=== PATIENT | male | born 1930 | race Caucasian/White ===

== ENCOUNTER 2018-03-19 17:26 | Inpatient (IN) | payer MEDICARE ==
[2018-03-19] MEDS ORDERED: SODIUM CHLORIDE 0.9% 1,000 ML IV STA ×2 (17:34→18:50)
[2018-03-19 17:53] LABS: Basophils % (A) 0 %; Eosinophils # (A) 0.1 k/uL (0-0.7); Eosinophils % (A) 1 %; HCT 37.8 % (39.0-53.0); HGB 12.9 gm/dL (13.0-17.5); Lymphocytes # (A) 0.6 k/uL (1.0-4.8); Lymphocytes % (A) 6 %; MCH 28.5 pg (25.0-35.0); MCHC 34.2 g/dL (31.0-37.0); MCV 83.4 fL (80.0-100.0); Mean Platelet Volume 6.9; Monocytes # (A) 0.4 k/uL (0-1.0); Monocytes % (A) 4 %; Neutrophils # (A) 8.5 k/uL (1.3-7.7); Neutrophils % (A) 88 %; Platelet Count 157 k/uL (150-450); RBC 4.53 m/uL (4.30-5.90); WBC 9.7 k/uL (3.8-10.6)
--- NOTE | 2018-03-19 17:59 | ED ---
General Adult HPI - General Chief complaint: Weakness Stated complaint: weakness Time Seen by Provider: 03/19/18 17:31 Source: patient, RN notes reviewed, old records reviewed Mode of arrival: EMS Limitations: no limitations - History of Present Illness Initial comments: This is a 87-year-old male the ER for evaluation. Patient is unable to provide history secondary to deteriorating clinical state. Patient does not feel well. Patient was sent in by EMS patient's brought in by EMS, per EMS patient has had multiple falls week unable to get up from floor. Patient was sent in by , patient himself again is unable to provide any history, but denies any current complaints. Per per patient is altered mental status and not acting appropriately - Related Data Home Medications Medication Instructions Recorded Confirmed Donepezil [Aricept] 10 mg PO DIRECTED 03/19/18 03/19/18 Ezetimibe [Zetia] 10 mg PO DIRECTED 03/19/18 03/19/18 Furosemide [Lasix] 20 mg PO DIRECTED 03/19/18 03/19/18 Lisinopril [Zestril] 10 mg PO DIRECTED 03/19/18 03/19/18 Metoprolol Tartrate [Lopressor] 25 mg PO DIRECTED 03/19/18 03/19/18 Potassium Chloride [K-Tab ER] 10 meq PO DIRECTED 03/19/18 03/19/18 Tamsulosin HCl [Flomax] 0.4 mg PO DIRECTED 03/19/18 03/19/18 Allergies Allergy/AdvReac Type Severity Reaction Status Date / Time atropine [From Lomotil] Allergy Rash/Hives Verified 03/19/18 17:35 cefaclor [From Ceclor] Allergy Unknown Verified 03/19/18 17:35 diphenoxylate [From Lomotil] Allergy Rash/Hives Verified 03/19/18 17:35 pentazocine lactate Allergy Unknown Verified 03/19/18 17:35 [From Talwin] Nijferp-Nob-Sbb Reductase Allergy Unknown Verified 03/19/18 17:35 Inhibitor Review of Systems ROS Statement: Those systems with pertinent positive or pertinent negative responses have been documented in the HPI. ROS Other: All systems not noted in ROS Statement are negative. Past Medical History Past Medical History: Heart Failure, Dementia, Hyperlipidemia, Hypertension Additional Past Medical History / Comment(s): Begining signs of dementia; sometimes forgetful History of Any Multi-Drug Resistant Organisms: None Reported Past Surgical History: Cholecystectomy, Hernia Repair, Orthopedic Surgery Additional Past Surgical History / Comment(s): Nerve block in back Past Anesthesia/Blood Transfusion Reactions: No Reported Reaction Past Psychological History: No Psychological Hx Reported Smoking Status: Former smoker Past Alcohol Use History: None Reported Past Drug Use History: None Reported General Exam Limitations: altered mental status, physical limitation General appearance: alert, lethargic Head exam: Present: atraumatic, normocephalic, normal inspection Eye exam: Present: normal appearance, PERRL, EOMI. Absent: scleral icterus, conjunctival injection, periorbital swelling ENT exam: Present: normal exam, mucous membranes dry Neck exam: Present: normal inspection. Absent: tenderness, meningismus, lymphadenopathy Respiratory exam: Present: normal lung sounds bilaterally. Absent: respiratory distress, wheezes, rales, rhonchi, stridor Cardiovascular Exam: Present: regular rate, normal rhythm, normal heart sounds. Absent: systolic murmur, diastolic murmur, rubs, gallop, clicks GI/Abdominal exam: Present: soft, normal bowel sounds. Absent: distended, tenderness, guarding, rebound, rigid Extremities exam: Present: normal inspection, full ROM, normal capillary refill. Absent: tenderness, pedal edema, joint swelling, calf tenderness Back exam: Present: normal inspection Neurological exam: Present: alert, oriented X3, CN II-XII intact Psychiatric exam: Present: normal affect, normal mood Skin exam: Present: warm, dry, intact, normal color. Absent: rash Course Vital Signs 03/19/18 17:28 Temperature 97.9 F Pulse Rate 78 Respiratory 16 Rate Blood Pressure 184/89 O2 Sat by Pulse 98 Oximetry - Reevaluation(s) Reevaluation #1: 03/19/18 18:52 Patient is unable to provide accurate history history obtained from patient's chart medical records thoroughly reviewed EKG Findings - EKG Comments: EKG Findings:: EKG shows sinus rhythm rate of 79, KS 322, QRS 90, QTc 458 Medical Decision Making - Medical Decision Making 87 male the ER with change in mental state, weakness and multiple falls. Patient unable to test secondary to unable to follow complete commands neurologically, patient will be admitted for continued evaluation management, treatment and likely placement - Lab Data Result diagrams: 03/19/18 17:44 03/19/18 17:44 Lab Results 03/19/18 03/19/18 03/19/18 Range/Units 17:44 17:44 17:44 WBC 9.7 (3.8-10.6) k/uL RBC 4.53 (4.30-5.90) m/uL Hgb 12.9 L (13.0-17.5) gm/dL Hct 37.8 L (39.0-53.0) % MCV 83.4 (80.0-100.0) fL MCH 28.5 (25.0-35.0) pg MCHC 34.2 (31.0-37.0) g/dL RDW 14.0 (11.5-15.5) % Plt Count 157 (150-450) k/uL Neutrophils % 88 % Lymphocytes % 6 % Monocytes % 4 % Eosinophils % 1 % Basophils % 0 % Neutrophils # 8.5 H (1.3-7.7) k/uL Lymphocytes # 0.6 L (1.0-4.8) k/uL Monocytes # 0.4 (0-1.0) k/uL Eosinophils # 0.1 (0-0.7) k/uL Basophils # 0.0 (0-0.2) k/uL PT (9.0-12.0) sec INR (<1.2) APTT (22.0-30.0) sec Sodium 141 (137-145) mmol/L Potassium 3.8 (3.5-5.1) mmol/L Chloride 105 (98-107) mmol/L Carbon Dioxide 30 (22-30) mmol/L Anion Gap 6 mmol/L BUN 17 (9-20) mg/dL Creatinine 0.60 L (0.66-1.25) mg/dL Est GFR (CKD-EPI)AfAm >90 (>60 ml/min/1.73 sqM) Est GFR (CKD-EPI)NonAf >90 (>60 ml/min/1.73 sqM) Glucose 91 (74-99) mg/dL Calcium 8.8 (8.4-10.2) mg/dL Total Bilirubin 1.6 H (0.2-1.3) mg/dL AST 33 (17-59) U/L ALT 33 (21-72) U/L Alkaline Phosphatase 45 (38-126) U/L Total Creatine Kinase 189 H (55-170) U/L CK-MB (CK-2) 3.7 H* (0.0-2.4) ng/mL CK-MB (CK-2) Rel Index 2.0 Troponin I <0.012 (0.000-0.034) ng/mL Total Protein 6.5 (6.3-8.2) g/dL Albumin 4.1 (3.5-5.0) g/dL 03/19/18 Range/Units 17:44 WBC (3.8-10.6) k/uL RBC (4.30-5.90) m/uL Hgb (13.0-17.5) gm/dL Hct (39.0-53.0) % MCV (80.0-100.0) fL MCH (25.0-35.0) pg MCHC (31.0-37.0) g/dL RDW (11.5-15.5) % Plt Count (150-450) k/uL Neutrophils % % Lymphocytes % % Monocytes % % Eosinophils % % Basophils % % Neutrophils # (1.3-7.7) k/uL Lymphocytes # (1.0-4.8) k/uL Monocytes # (0-1.0) k/uL Eosinophils # (0-0.7) k/uL Basophils # (0-0.2) k/uL PT 11.1 (9.0-12.0) sec INR 1.2 H (<1.2) APTT 29.5 (22.0-30.0) sec Sodium (137-145) mmol/L Potassium (3.5-5.1) mmol/L Chloride (98-107) mmol/L Carbon Dioxide (22-30) mmol/L Anion Gap mmol/L BUN (9-20) mg/dL Creatinine (0.66-1.25) mg/dL Est GFR (CKD-EPI)AfAm (>60 ml/min/1.73 sqM) Est GFR (CKD-EPI)NonAf (>60 ml/min/1.73 sqM) Glucose (74-99) mg/dL Calcium (8.4-10.2) mg/dL Total Bilirubin (0.2-1.3) mg/dL AST (17-59) U/L ALT (21-72) U/L Alkaline Phosphatase (38-126) U/L Total Creatine Kinase (55-170) U/L CK-MB (CK-2) (0.0-2.4) ng/mL CK-MB (CK-2) Rel Index Troponin I (0.000-0.034) ng/mL Total Protein (6.3-8.2) g/dL Albumin (3.5-5.0) g/dL - Radiology Data Radiology results: report reviewed (CT brain negative for acute disease), image reviewed Disposition Clinical Impression: Transient cerebral ischemia, Confusion, Recurrent falls, Dehydration Disposition: ADMITTED IP TO THIS HOSP Condition: Fair Is patient prescribed a controlled substance at d/c from ED?: No Referrals: Maite Tirado MD [Primary Care Provider] - 1-2 days
[2018-03-19 18:02] LABS: INR 1.2 (<1.2); Partial Thromboplastin Time 29.5 sec (22.0-30.0); Prothrombin Time 11.1 sec (9.0-12.0)
[2018-03-19 18:04] LABS: ALT 33 U/L (21-72); AST 33 U/L (17-59); Albumin 4.1 g/dL (3.5-5.0); Alkaline Phosphatase 45 U/L (38-126); Anion Gap 6 mmol/L; Blood Urea Nitrogen 17 mg/dL (9-20); Calcium 8.8 mg/dL (8.4-10.2); Carbon Dioxide 30 mmol/L (22-30); Chloride 105 mmol/L (98-107); Glucose 91 mg/dL (74-99); Sodium 141 mmol/L (137-145); Total Bilirubin 1.6 mg/dL (0.2-1.3); Total Protein 6.5 g/dL (6.3-8.2)
[2018-03-19 18:08] LABS: Creatine Kinase 189 U/L (55-170); Potassium 3.8 mmol/L (3.5-5.1)
[2018-03-19 18:20] LABS: Troponin I <0.012 ng/mL (0.000-0.034)
[2018-03-19 18:21] LABS: Creatine Kinase MB 3.7 ng/mL (0.0-2.4)
--- NOTE | 2018-03-19 18:52 | CT ---
EXAMINATION: CT brain wo con for TPA DATE AND TIME: 03/19/2018 6:36 PM ORDERING PROVIDER: Nahum Combs DO CLINICAL INDICATION: Neuro Deficits TECHNIQUE: Standard departmental protocol. COMPARISON: 07/29/2016 DESCRIPTION: The calvarium is intact. There is no intracranial hemorrhage. There is no mass or mass effect. There is no definite new attenuation defect. Diffuse low attenuation bilaterally is noted within the schulte radiata and centrum semiovale, but no definite new attenuatio n defect. Remainder of the intra-axial and extra-axial compartment examination is unremarkable. The paranasal s inuses, middle ear cavities, and mastoid sinus air cells are clear. The orbits are intact. Prominent bilateral cerumen is noted within the external auditory canals. IMPRESSION: NO ACUTE PROCESS.
[2018-03-19 19:00] LABS: Appearance,Urine Clear (Clear); Bacteria,Urine Rare /hpf; Bilirubin,Urine Negative (Negative); Blood,Urine Negative (Negative); Color,Urine Light Yellow; Glucose,Urine (UA) Negative (Negative); Ketones,Urine 1+ (Negative); Leukocyte Esterase,Urine Moderate (Negative); Mucus,Urine Moderate /hpf; Nitrite,Urine Negative (Negative); PH, Urine 7.5 (5.0-8.0); Protein,Urine Negative (Negative); RBC,Urine 4 /hpf (0-5); Specific Gravity,Urine 1.019 (1.001-1.035); Urobilinogen,Urine <2.0 mg/dL (<2.0); WBC,Urine 32 /hpf (0-5)
--- NOTE | 2018-03-19 19:29 | CT ---
EXAMINATION TYPE: CT angio head neck contrast and with 3-D reconstruction). DATE OF EXAM: 03/19/2018 HISTORY: cva COMPARISON: CT brain without contrast, 03/19/2018 at 6:20 PM. 07/29/[address] DLP: 236.9 mGycm. Automated Exposure Control for Dose Reduction was Utilized. TECHNIQUE: CTA scan of the neck is performed with IV Contrast, patient injected with 65 mL of Isovue 370, axial images are obtained, coronal and sagittal reformatted images are reviewed. Three-D recons tructed images are created on an independent workstation and reviewed. NECK CTA FINDINGS: Origins of the great vessels are widely patent. The right and left common, internal, and external carotid arteries are widely patent without hemodyna mically significant stenoses throughout their cervical course. Atherosclerotic intimal calcifications are appreciated. The right and left vertebral arteries are widely patent without hemodynamically significant stenoses throughout their cervical course. Atherosclerotic intimal calcifications are appreciated. No incidental extra-arterial significant findings. HEAD CTA FINDINGS: The anterior circulation and posterior circulation are diffusely patent. There is no aneurysm and no definite hemodynamically-significant stenoses. Atherosclerotic intimal calcificati ons are appreciated. No incidental extra-arterial significant findings. IMPRESSION: NO ACUTE PROCESS.
[2018-03-19] MEDS ORDERED: LEVOFLOXACIN 750MG-D5W PMX 750 MG in DEXTROSE/WATER 1 150ML.BAG IVPB STA (19:39)
[2018-03-19] MEDS ORDERED: LABETALOL 5 MG/ML VIAL MDV IVP STA (19:57)
[2018-03-20] MEDS: hydrALAZINE HCL 20 MG/ML 1 ML VIAL IVP PRN (00:04)
[2018-03-20] MEDS ORDERED: LISINOPRIL 10 MG TAB PO SCH (01:45)
[2018-03-20] MEDS ORDERED: EZETIMIBE 10 MG TAB PO SCH (01:45)
[2018-03-20] MEDS ORDERED: DONEPEZIL 10 MG TAB PO SCH (01:45)
[2018-03-20 02:29] LABS: Glucose,Whole Blood 126 mg/dL (75-99)
[2018-03-20] MEDS ORDERED: ENALAPRILAT 1.25 MG/ML 1 ML VIAL IVP STA (02:48)
--- NOTE | 2018-03-20 03:09 | XR ---
EXAMINATION TYPE: XR abdomen acute w cxr DATE OF EXAM: 03/20/2018 COMPARISON: 07/03/2015 and 07/28/2016 HISTORY: Abdominal pain possible aspiration TECHNIQUE: Chest x-ray and supine and upright abdomen FINDINGS: There is coarse pulmonary interstitial infiltrate. Heart size is normal. There is no definite pleural effusion. There is no sign of intestinal obstruction or pneumoperitoneum. Fecal pattern is normal. T here is neurostimulator in the mid thoracic spine. IMPRESSION: New pulmonary interstitial infiltrates and edema compared to old exam. This could relate to acute hea rt failure. Nonacute abdomen.
[2018-03-20] MEDS ORDERED: FUROSEMIDE 10 MG/ML 2 ML VIAL IV STA (03:19)
[2018-03-20] MEDS ORDERED: HYDROcodone/APAP 5-325MG 1 EACH TAB PO PRN (03:19)
[2018-03-20] MEDS: ONDANSETRON 4 MG/2 ML VIAL IVP PRN ×2 (04:08→22:21)
[2018-03-20 07:13] LABS: Basophils % (A) 0 %; Eosinophils % (A) 0 %; HCT 42.9 % (39.0-53.0); HGB 14.4 gm/dL (13.0-17.5); Lymphocytes # (A) 0.3 k/uL (1.0-4.8); Lymphocytes % (A) 3 %; MCH 28.6 pg (25.0-35.0); MCHC 33.5 g/dL (31.0-37.0); MCV 85.2 fL (80.0-100.0); Mean Platelet Volume 6.3; Monocytes # (A) 0.3 k/uL (0-1.0); Monocytes % (A) 3 %; Neutrophils # (A) 9.9 k/uL (1.3-7.7); Neutrophils % (A) 93 %; Platelet Count 174 k/uL (150-450); RBC 5.04 m/uL (4.30-5.90); RDW 14.4 % (11.5-15.5); WBC 10.6 k/uL (3.8-10.6)
[2018-03-20 07:20] LABS: Anion Gap 8 mmol/L; Blood Urea Nitrogen 11 mg/dL (9-20); Calcium 8.7 mg/dL (8.4-10.2); Carbon Dioxide 30 mmol/L (22-30); Chloride 102 mmol/L (98-107); Glucose 126 mg/dL (74-99); Magnesium 1.8 mg/dL (1.6-2.3); Potassium 3.8 mmol/L (3.5-5.1); Sodium 140 mmol/L (137-145)
[2018-03-20] MEDS: ENOXAPARIN 40 MG/0.4 ML SYRINGE SQ SCH (07:52)
[2018-03-20] MEDS: TAMSULOSIN 0.4 MG CAP.ER.24H PO SCH (07:52)
[2018-03-20] MEDS: POTASSIUM CHLORIDE ER 20 MEQ TAB.ER PO SCH (07:53)
[2018-03-20] MEDS: LISINOPRIL 10 MG TAB PO SCH (07:53)
[2018-03-20] MEDS: FAMOTIDINE 20 MG TAB PO SCH (07:56)
[2018-03-20] MEDS: DONEPEZIL 10 MG TAB PO SCH (07:57)
[2018-03-20] MEDS: METOPROLOL TARTRATE 25 MG TAB PO SCH ×2 (07:57→22:23)
[2018-03-20] MEDS: EZETIMIBE 10 MG TAB PO SCH (07:57)
[2018-03-20] MEDS: FUROSEMIDE 20 MG TAB PO SCH (10:27)
--- NOTE | 2018-03-20 11:05 | ECHOF ---
Referral Reason:CVA MEASUREMENTS -------- HEIGHT: 162.6 cm WEIGHT: 52.2 kg BP: 140/82 RVIDd: 3.7 cm (< 3.3) IVSd: 1.2 cm (0.6 - 1.1) LVIDd: 3.8 cm (3.9 - 5.3) LVPWd: 1.8 cm (0.6 - 1.1) IVSs: 1.6 cm LVIDs: 3.4 cm LVPWs: 1.5 cm LA Diam: 3.2 cm (2.7 - 3.8) LAESV Index (A-L): 53.30 ml/m Ao Diam: 3.4 cm (2.0 - 3.7) AV Cusp: 0.9 cm (1.5 - 2.6) MV EXCURSION: 22.560 mm (> 18.000) MV EF SLOPE: 114 mm/s (70 - 150) EPSS: 1.7 cm MV E Ghassan: 0.66 m/s MV DecT: 256 ms MV A Ghassan: 0.72 m/s MV E/A Ratio: 0.91 AV maxP.51 mmHg AV meanP.66 mmHg RAP: 5.00 mmHg RVSP: 25.41 mmHg FINDINGS -------- Sinus rhythm. This was a technically adequate study. The left ventricular size is normal. There is mild concentric left ventricular hypertrophy. Overa ll left ventricular systolic function is low-normal with, an EF between 50 - 55 %. The right ventricle is mild to moderately enlarged. The left atrial size is normal. LA is severely dilated >40 ml/m2 The right atrial size is normal. Peak/mean gradient across the Aortic Valve is 21.51mmHg / 8.66mmHg. Aov is stenotic with decrease o pening. Mild mitral annular calcification present. Uvfo-mb-tbrbhvnt mitral regurgitation is present. Mild tricuspid regurgitation present. There is no evidence of pulmonary hypertension. The right v entricular systolic pressure, as measured by Doppler, is 25.41mmHg. Trace/mild (physiologic) pulmonic regurgitation. The aortic root size is normal. There is no pericardial effusion. CONCLUSIONS -------- 1. The left ventricular size is normal. 2. There is mild concentric left ventricular hypertrophy. 3. Overall left ventricular systolic function is low-normal with, an EF between 50 - 55 %. 4. The right ventricle is mild to moderately enlarged. 5. The left atrial size is normal. 6. LA is severely dilated >40 ml/m2 7. The right atrial size is normal. 8. Peak/mean gradient across the Aortic Valve is 21.51mmHg / 8.66mmHg. 9. Aov is stenotic with decrease opening. 10. Mild mitral annular calcification present. 11. Byhu-xk-tnabvtir mitral regurgitation is present. 12. Mild tricuspid regurgitation present. 13. There is no evidence of pulmonary hypertension. 14. The right ventricular systolic pressure, as measured by Doppler, is 25.41mmHg. 15. Trace/mild (physiologic) pulmonic regurgitation. 16. The aortic root size is normal. 17. There is no pericardial effusion. SHIPPING AND RECEIVING OPERATOR: Vale Mora RDCS
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
[2018-03-20 13:22] VITALS: BMI 16.0
--- NOTE | 2018-03-20 14:26 | FL ---
MODIFIED SWALLOW / DEGLUTITION STUDY EXAMINATION TYPE: FL barium swallow w video DATE OF EXAM: 03/20/2018 CLINICAL HISTORY: 87-year-old male with trouble swallowing, choking and gurgling at the bedside. TECHNIQUE: Deglutition study is performed utilizing thin liquid barium, honey and nectar thick liqui d barium, barium thick applesauce, and barium coated cracker. Total fluoroscopy time: 3 minutes 5 seconds. Total images: None. Real-time fluoroscopy support was provided to speech pathology. COMPARISON: None. FINDINGS: There is dysmotility along the posterior pharyngeal wall resulting in residual here. There is deep pe netration with thin liquids. There is penetration to the level of the false cords with puree consiste ncy with eventual deep penetration to the true cords. There is severe vallecular residuals with solid consistencies and moderate with puree consistency. No irina aspiration seen though this does place the patient at risk for aspiration. IMPRESSION: Deep penetration with both thin liquids and pureed consistency. There are also moderate to severe gene lecular residuals depending on pureed or solid consistencies. While aspiration was not seen, this sammie roslyn the patient at risk for aspiration. Please refer to speech therapist notes for further details if necessary.
[2018-03-20] MEDS: HYDROcodone/APAP 7.5-325MG 1 EACH TAB PO PRN ×2 (15:25→22:19)
--- NOTE | 2018-03-20 16:33 | XR ---
EXAMINATION TYPE: XR sacrum coccyx DATE OF EXAM: 03/20/2018 COMPARISON: None HISTORY: Fall, pain TECHNIQUE: 3 views sacrum and coccyx FINDINGS: Sacroiliac joints have some degenerative change. No sacral or coccygeal abnormality is evid ent. IMPRESSION: 1. Normal sacrum and coccyx
--- NOTE | 2018-03-20 16:33 | XR ---
EXAMINATION TYPE: XR lumbosacral spine min 4V DATE OF EXAM: 03/20/2018 COMPARISON: None HISTORY: Fall on cement, pain TECHNIQUE: Five-view lumbar spine FINDINGS: Electronic device is in the abdomen. Pedicle screws are present L4-5. There 5 lumbar-type vertebral bodies. L1-L3 pedicles are intact. Laminectomies been performed L4-5 L5 -S1. Loss of disc height is present L4-5. Vascular calcifications within the aorta. There is loss of disc height posteriorly at L1-L2. IMPRESSION: 1. Postsurgical and degenerative changes within the lumbar spine discussed above. 2. No acute osseous abnormality
--- NOTE | 2018-03-20 19:40 | CONS ---
CONSULTATION DATE OF CONSULTATION: 03/20/2018. CHIEF COMPLAINT: Altered mental status. HISTORY OF PRESENT ILLNESS: Mr. Maloney is a pleasant 87-year-old, male, who is being evaluated by the neurology service per the request of Dr. Long for altered mental status. The patient was brought into [facility] Emergency Room after his noticed that he was not acting like his usual self. The patient has been having some frequent falls as well at home. There was concern for a possible stroke and the patient was brought into the emergency room for further workup. A CT scan of the brain was done, which was normal. A CT angiogram of the brain and neck were also done both of which showed no significant abnormalities. His CBC and cardiac enzymes were normal. His INR was 1.2. His comprehensive metabolic profile was normal except for slightly elevated bilirubin at 1.6. His urinalysis showed 32 WBCs with moderate leukocyte esterase. The patient was started on Levaquin and admitted for further management. At the time of my evaluation, he is lying in his bed and appears to be in no acute distress. He was complaining of some low back pain which he does have a chronic history of, and just received oral [place] tablet which has improved his symptoms. The patient does have a history of Alzheimer's dementia and is on Aricept 10 mg daily at home. He denies any lateralizing numbness or weakness. In the emergency room, his blood pressure was elevated at 197/92. His blood pressure has improved to 140/82 at the time of my evaluation. PAST MEDICAL HISTORY: Alzheimer's dementia, chronic low back pain, arthritis, heart failure, dyslipidemia, hypertension, benign prostatic hypertrophy, history of cholecystectomy, hernia repair, orthopedic surgeries. SOCIAL HISTORY: The patient is a former smoker. There is no history of any alcohol or drug use. FAMILY HISTORY: Positive for cancer. HOME MEDICATIONS: Reviewed in the chart. ALLERGIES: LOMOTIL, CECLOR, TALWIN, STATIN DRUGS. REVIEW OF SYSTEMS: CONSTITUTIONAL: Positive for fatigue. EYES: Positive for chronic diminished vision. ENT: Negative. CARDIOVASCULAR: Negative. RESPIRATORY: Negative. NEUROLOGICAL: As mentioned above. GASTROINTESTINAL: Positive for occasional heartburn. GENITOURINARY: Positive for benign prostatic hypertrophy. PSYCHIATRIC: Negative. ENDOCRINE: Negative. MUSCULOSKELETAL: As mentioned above. DERMATOLOGICAL: Negative. PHYSICAL EXAM: VITAL SIGNS: Temperature of 96.6, pulse 88, respirations 16, blood pressure 140/82. GENERAL APPEARANCE: The patient is a thin elderly male, who appears to be in no acute distress. HEENT: Normocephalic, atraumatic. No facial asymmetry is seen. NECK: Supple with no masses felt. CARDIOVASCULAR: Regular rate and rhythm. ABDOMEN: Nontender nondistended. EXTREMITIES: No edema or clubbing. NEUROLOGICAL: The patient is awake and oriented to person and place. He could not recall the year. He follows commands appropriately. No lateralizing weakness is seen. No pronator drift is noticed. Sensory exam was normal to light touch in all 4 extremities. No facial asymmetry is seen on cranial nerve testing. No significant tremors are noticed. IMPRESSION: 1. Altered mental status. 2. Acute on top of chronic encephalopathy, likely infectious and hypertensive. 3. History of Alzheimer's dementia. 4. Acute urinary tract infection. 5. Elevated bilirubin levels. RECOMMENDATION: The patient's altered mental status is likely due to hypertensive and infectious encephalopathy. His blood pressure was quite elevated on arrival but has normalized after his admission. He was also found to have an acute urinary tract infection. He has been started on Levaquin for this. An EEG has been ordered. His CT scan of the brain along with a CT angiogram of the brain and neck were reviewed and all of which showed no significant abnormalities. I doubt any ischemic events at this time. Continue neuro checks. I do recommend a physical therapy evaluation given his gait instability. I also recommend further workup regarding his elevated bilirubin level. Continue the rest of your current workup and management. I will continue to follow with you. Further recommendations to follow. Thank you for allowing me to participate in the care of your patient. If you have any questions, please feel free to contact me. MMODL / IJN: [id number] /
[2018-03-20] MEDS: LEVOFLOXACIN 750MG-D5W PMX 750 MG in DEXTROSE/WATER 1 150ML.BAG IVPB SCH (20:33)
[2018-03-21] MEDS: HYDROcodone/APAP 7.5-325MG 1 EACH TAB PO PRN (05:59)
[2018-03-21 07:21] LABS: Basophils % (A) 0 %; Eosinophils % (A) 0 %; HCT 38.9 % (39.0-53.0); HGB 13.1 gm/dL (13.0-17.5); Lymphocytes # (A) 0.4 k/uL (1.0-4.8); Lymphocytes % (A) 4 %; MCH 29.1 pg (25.0-35.0); MCHC 33.8 g/dL (31.0-37.0); MCV 86.3 fL (80.0-100.0); Mean Platelet Volume 6.8; Monocytes # (A) 0.3 k/uL (0-1.0); Monocytes % (A) 3 %; Neutrophils # (A) 9.7 k/uL (1.3-7.7); Neutrophils % (A) 92 %; Platelet Count 154 k/uL (150-450); RBC 4.51 m/uL (4.30-5.90); RDW 14.2 % (11.5-15.5); WBC 10.5 k/uL (3.8-10.6)
[2018-03-21 07:45] LABS: ALT 29 U/L (21-72); AST 22 U/L (17-59); Albumin 3.3 g/dL (3.5-5.0); Alkaline Phosphatase 46 U/L (38-126); Anion Gap 6 mmol/L; Blood Urea Nitrogen 17 mg/dL (9-20); Calcium 8.6 mg/dL (8.4-10.2); Carbon Dioxide 31 mmol/L (22-30); Chloride 104 mmol/L (98-107); Glucose 103 mg/dL (74-99); Sodium 141 mmol/L (137-145); Total Bilirubin 1.3 mg/dL (0.2-1.3); Total Protein 5.6 g/dL (6.3-8.2)
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
--- NOTE | 2018-03-21 16:12 | P.PN ---
Subjective Progress Note Date: 03/21/18 Patient is an 87-year-old male who is being followed by the neurology service for altered mental status. Patient was brought to [facility] after his noticed he was not acting his usual self. Patient has been having frequent falls at home. There is concern for possible stroke and patient was brought to the emergency room for further evaluation. Computed tomography scan of the brain was done which was normal. CT angiogram of the brain and neck were also done which showed no significant abnormalities. Patient did have urinalysis which showed signs of urinary tract infection and patient was placed on Levaquin. Patient does have history of Alzheimer's dementia and is on Aricept in the home setting. No lateralizing weakness was noted on admission. Patient did come in with elevated blood pressure which is now down in acceptable range. Patient does have history of chronic back pain and received increased dose of hydrocodone this morning, and patient has been extremely lethargic since. At the time of my evaluation, patient is arousable but extremely lethargic. He does not appear to be in any acute distress. Objective - Vital Signs Vital signs: Vital Signs Temp 97.5 F L 03/21/18 15:48 Pulse 75 03/21/18 15:48 Resp 16 03/21/18 15:48 BP 138/77 03/21/18 15:48 Pulse Ox 94 L 03/21/18 15:48 Intake & Output 03/20/18 03/21/18 03/21/18 18:59 06:59 18:59 Intake Total 810 890 0 Balance 810 890 0 Weight 52.163 kg 52.163 kg Intake: Intake, IV Titration 500 150 Amount Levofloxacin 750Mg-D5w 150 Pmx 750 mg In Dextrose/ Water 1 150ml.bag @ 100 mls/hr IVPB Q24H MARIANNE Rx#: [id number] Sodium Chloride 0.9% 1, 500 000 ml @ 100 mls/hr IV . Q10H STA Rx#:[id number] Oral 310 740 0 Other: Voiding Method Diaper Diaper Diaper Incontinent Incontinent Incontinent # Voids 2 4 - Exam PHYSICAL EXAM: GENERAL APPEARANCE: Patient is a well-developed, male who appears to be in no acute distress. HEENT: Normocephalic, atraumatic, no facial asymmetry is seen. Neck is supple with no masses felt. CARDIOVASCULAR: Regular rate and rhythm. ABDOMEN: Nontender, nondistended. EXTREMITIES: Show no edema or clubbing. NEUROLOGICAL EXAM: Patient awakens with significant prodding. Patient is very lethargic. Likely due to medication given this morning. He is able to state he is in the hospital. Patient quickly falls back to sleep. He is moving all extremities. No lateralizing weakness noted. No obvious facial asymmetry is noted. A meaningful sensory and strength exam could not be performed due to lethargy. No obvious tremors or seizure-like activity noted. - Labs CBC & Chem 7: 03/21/18 06:38 03/21/18 06:38 Labs: Abnormal Lab Results - Last 24 Hours (Table) 03/21/18 03/21/18 Range/Units 06:38 06:38 Hct 38.9 L (39.0-53.0) % Neutrophils # 9.7 H (1.3-7.7) k/uL Lymphocytes # 0.4 L (1.0-4.8) k/uL Carbon Dioxide 31 H (22-30) mmol/L Glucose 103 H (74-99) mg/dL Total Protein 5.6 L (6.3-8.2) g/dL Albumin 3.3 L (3.5-5.0) g/dL Microbiology - Last 24 Hours (Table) 03/19/18 18:48 Urine Culture - Preliminary Urine,Voided Gram Neg Bacilli Assessment and Plan Plan: Impression: 1. Altered mental status 2. Acute on chronic encephalopathy, likely infectious and hypertensive. 3. History of Alzheimer's dementia 4. Acute urinary tract infection 5. Elevated bilirubin levels Recommendation: Patient's altered mental status is likely due to hypertensive an infectious encephalopathy. It is doubtful this is due to an ischemic event. Patient had elevated blood pressure on admission but is now within acceptable level. Patient is being treated for acute urinary tract infection. EEG was done and results are pending. As you recall, computed tomography scan of the brain along with CT angiogram of the brain and neck were without significant abnormality. Continue neurological checks. Continue physical therapy for gait instability. Continue medical management. As far as patient lethargy, I expect he will become more alert as the hydrocodone wears off. Hydrocodone dosing has been lowered. Barring any abnormality on the EEG, I will follow with you on an as-needed basis. Feel free to call with any questions or concerns. I performed an examination of the patient and discussed the management with the CATHODE RAY TUBE SALVAGE PROCESSOR. I have reviewed the CATHODE RAY TUBE SALVAGE PROCESSOR notes and agree with the findings and plan of care.
[2018-03-21] MEDS: ENOXAPARIN 40 MG/0.4 ML SYRINGE SQ SCH (17:13)
[2018-03-21] MEDS: DONEPEZIL 10 MG TAB PO SCH (17:13)
[2018-03-21] MEDS: TAMSULOSIN 0.4 MG CAP.ER.24H PO SCH (17:13)
[2018-03-21] MEDS: POTASSIUM CHLORIDE ER 20 MEQ TAB.ER PO SCH (17:14)
[2018-03-21] MEDS: FUROSEMIDE 20 MG TAB PO SCH (17:14)
[2018-03-21] MEDS: EZETIMIBE 10 MG TAB PO SCH (17:14)
[2018-03-21] MEDS: LISINOPRIL 10 MG TAB PO SCH (17:14)
[2018-03-21] MEDS: FAMOTIDINE 20 MG TAB PO SCH (17:14)
[2018-03-21] MEDS: METOPROLOL TARTRATE 25 MG TAB PO SCH ×2 (17:14→22:12)
[2018-03-21] MEDS: LEVOFLOXACIN 750MG-D5W PMX 750 MG in DEXTROSE/WATER 1 150ML.BAG IVPB SCH (20:05)
[2018-03-22 07:24] LABS: Basophils % (A) 0 %; Eosinophils % (A) 0 %; HCT 36.9 % (39.0-53.0); HGB 12.1 gm/dL (13.0-17.5); Lymphocytes # (A) 0.5 k/uL (1.0-4.8); Lymphocytes % (A) 6 %; MCH 27.6 pg (25.0-35.0); MCHC 32.8 g/dL (31.0-37.0); MCV 84.1 fL (80.0-100.0); Mean Platelet Volume 8.1; Monocytes # (A) 0.4 k/uL (0-1.0); Monocytes % (A) 5 %; Neutrophils # (A) 7.1 k/uL (1.3-7.7); Neutrophils % (A) 88 %; Platelet Count 163 k/uL (150-450); RBC 4.39 m/uL (4.30-5.90); RDW 13.9 % (11.5-15.5)
[2018-03-22 07:31] LABS: ALT 29 U/L (21-72); AST 14 U/L (17-59); Albumin 2.9 g/dL (3.5-5.0); Alkaline Phosphatase 42 U/L (38-126); Anion Gap 2 mmol/L; Blood Urea Nitrogen 16 mg/dL (9-20); Calcium 8.3 mg/dL (8.4-10.2); Carbon Dioxide 33 mmol/L (22-30); Chloride 106 mmol/L (98-107); Glucose 95 mg/dL (74-99); Potassium 3.7 mmol/L (3.5-5.1); Sodium 141 mmol/L (137-145); Total Bilirubin 1.3 mg/dL (0.2-1.3); Total Protein 5.1 g/dL (6.3-8.2)
[2018-03-22] MEDS: FUROSEMIDE 20 MG TAB PO SCH (08:36)
[2018-03-22] MEDS: ENOXAPARIN 40 MG/0.4 ML SYRINGE SQ SCH (08:36)
[2018-03-22] MEDS: POTASSIUM CHLORIDE ER 20 MEQ TAB.ER PO SCH (08:36)
[2018-03-22] MEDS: FAMOTIDINE 20 MG TAB PO SCH (08:37)
[2018-03-22] MEDS: DONEPEZIL 10 MG TAB PO SCH (08:37)
[2018-03-22] MEDS: EZETIMIBE 10 MG TAB PO SCH (08:37)
[2018-03-22] MEDS: TAMSULOSIN 0.4 MG CAP.ER.24H PO SCH (08:37)
[2018-03-22] MEDS: LISINOPRIL 10 MG TAB PO SCH (08:37)
[2018-03-22] MEDS: METOPROLOL TARTRATE 25 MG TAB PO SCH ×2 (08:37→21:10)
[2018-03-22] MEDS: HYDROcodone/APAP 5-325MG 1 EACH TAB PO PRN (12:13)
--- NOTE | 2018-03-22 12:48 | PN ---
PROGRESS NOTE DATE OF SERVICE: 03/22/2018 He is hemodynamically stable. He feels like he is having some chills today. His appetite is poor. His blood pressure is 161/82, respiratory rate of 16, pulse rate of 74, temperature 98.2. Oxygen saturation on 2 L by nasal cannula is 96%. HEENT is unremarkable. Chest reveals decreased breath sounds. Cardiovascular system is in S1, S2. Abdomen is soft. There is no edema. White count is 8, hemoglobin of 12.1, sodium 141, potassium 3.7, chloride 106, bicarb 33. IMPRESSION AT THIS TIME: 1. Metabolic encephalopathy. 2. Urinary tract infection. 3. Acute on chronic diastolic congestive heart failure. 4. Advanced dementia. 5. Severe protein-calorie malnutrition. 6. Hypertension. 7. Previous cerebrovascular accident. Continue current medications. Increase his activity level. Continue GI and DVT prophylaxis. MMODL / IJN: [id number] /
--- NOTE | 2018-03-22 17:07 | P.PN ---
Subjective Progress Note Date: 03/22/18 Patient is an 87-year-old male who is being followed by the neurology service for altered mental status. Patient was brought to [facility] after his noticed he was not acting his usual self. Patient has been having frequent falls at home. There is concern for possible stroke and patient was brought to the emergency room for further evaluation. Computed tomography scan of the brain was done which was normal. CT angiogram of the brain and neck were also done which showed no significant abnormalities. Patient did have urinalysis which showed signs of urinary tract infection and patient was placed on Levaquin. Patient does have history of Alzheimer's dementia and is on Aricept in the home setting. No lateralizing weakness was noted on admission. Patient did come in with elevated blood pressure which is now down in acceptable range. Patient does have history of chronic back pain and received increased dose of hydrocodone this morning, and patient has been extremely lethargic since. At the time of my evaluation, patient is arousable but extremely lethargic. He does not appear to be in any acute distress. 03/22/2018 Patient is a pleasant 87-year-old male who is being followed by the neurology service for altered mental status. Patient is much more awake and alert today. No lateralizing weakness noted. No obvious facial asymmetry is noted. At the time of my evaluation, patient is resting comfortably in bed and appears to be in no acute distress. Objective - Vital Signs Vital signs: Vital Signs Temp 97.1 F L 03/22/18 15:00 Pulse 69 03/22/18 15:00 Resp 18 03/22/18 15:00 BP 141/78 03/22/18 15:00 Pulse Ox 98 03/22/18 15:00 Intake & Output 03/21/18 03/22/18 03/22/18 18:59 06:59 18:59 Intake Total 0 400 Balance 0 400 Weight 52.163 kg Intake: IV 400 0.9 400 Oral 0 Other: Voiding Method Diaper Diaper Diaper Incontinent Incontinent Incontinent # Voids 4 1 - Exam PHYSICAL EXAM: GENERAL APPEARANCE: Patient is a well-developed, male who appears to be in no acute distress. HEENT: Normocephalic, atraumatic, no facial asymmetry is seen. Neck is supple with no masses felt. CARDIOVASCULAR: Regular rate and rhythm. ABDOMEN: Nontender, nondistended. EXTREMITIES: Show no edema or clubbing. NEUROLOGICAL EXAM: Patient is awake, alert, and oriented 2. Patient states he is in the hospital and can state his name. Patient does not know what year or month it is. No lateralizing weakness noted. No obvious facial asymmetry is noted. Sensory exam to light touch is normal in all 4 extremities. No tremors or seizure-like activity noted. - Labs CBC & Chem 7: 03/22/18 07:07 03/22/18 07:07 Labs: Abnormal Lab Results - Last 24 Hours (Table) 03/22/18 03/22/18 Range/Units 07:07 07:07 Hgb 12.1 L (13.0-17.5) gm/dL Hct 36.9 L (39.0-53.0) % Lymphocytes # 0.5 L (1.0-4.8) k/uL Carbon Dioxide 33 H (22-30) mmol/L Calcium 8.3 L (8.4-10.2) mg/dL AST 14 L (17-59) U/L Total Protein 5.1 L (6.3-8.2) g/dL Albumin 2.9 L (3.5-5.0) g/dL Microbiology - Last 24 Hours (Table) 03/19/18 18:48 Urine Culture - Final Urine,Voided Klebsiella oxytoca Assessment and Plan Plan: Impression: 1. Altered mental status 2. Acute on chronic encephalopathy, likely infectious and hypertensive. 3. History of Alzheimer's dementia 4. Acute urinary tract infection 5. Elevated bilirubin levels Recommendation: Patient's altered mental status is likely due to hypertensive an infectious encephalopathy. There is no evidence of an ischemic event. Patient had elevated blood pressure on admission but is now within acceptable level. Patient is being treated for acute urinary tract infection. EEG was done and results are pending. As you recall, computed tomography scan of the brain along with CT angiogram of the brain and neck were without significant abnormality. Continue neurological checks. Continue physical therapy for gait instability. Continue medical management. Barring any abnormality on the EEG, I will follow with you on an as-needed basis. Feel free to call with any questions or concerns. I performed an examination of the patient and discussed the management with the GRILL COOK. I have reviewed the GRILL COOK notes and agree with the findings and plan of care.
[2018-03-22] MEDS: LEVOFLOXACIN 750MG-D5W PMX 750 MG in DEXTROSE/WATER 1 150ML.BAG IVPB SCH (19:36)
[2018-03-23] MEDS: FAMOTIDINE 20 MG TAB PO SCH (07:58)
[2018-03-23] MEDS: ENOXAPARIN 40 MG/0.4 ML SYRINGE SQ SCH (07:58)
[2018-03-23] MEDS: FUROSEMIDE 20 MG TAB PO SCH (07:58)
[2018-03-23] MEDS: EZETIMIBE 10 MG TAB PO SCH (07:58)
[2018-03-23] MEDS: POTASSIUM CHLORIDE ER 20 MEQ TAB.ER PO SCH (07:58)
[2018-03-23] MEDS: TAMSULOSIN 0.4 MG CAP.ER.24H PO SCH (07:58)
[2018-03-23] MEDS: LISINOPRIL 10 MG TAB PO SCH (07:59)
[2018-03-23] MEDS: DONEPEZIL 10 MG TAB PO SCH (07:59)
[2018-03-23] MEDS: METOPROLOL TARTRATE 25 MG TAB PO SCH ×2 (07:59→21:52)
[2018-03-23 08:19] LABS: Basophils % (A) 0 %; Eosinophils # (A) 0.1 k/uL (0-0.7); Eosinophils % (A) 2 %; HCT 37.3 % (39.0-53.0); HGB 12.5 gm/dL (13.0-17.5); Lymphocytes # (A) 0.7 k/uL (1.0-4.8); Lymphocytes % (A) 9 %; MCH 28.4 pg (25.0-35.0); MCHC 33.4 g/dL (31.0-37.0); MCV 84.8 fL (80.0-100.0); Mean Platelet Volume 6.9; Monocytes # (A) 0.4 k/uL (0-1.0); Monocytes % (A) 5 %; Neutrophils # (A) 5.9 k/uL (1.3-7.7); Neutrophils % (A) 82 %; Platelet Count 171 k/uL (150-450); RDW 13.7 % (11.5-15.5); WBC 7.2 k/uL (3.8-10.6)
[2018-03-23 08:32] LABS: ALT 28 U/L (21-72); AST 17 U/L (17-59); Albumin 2.9 g/dL (3.5-5.0); Alkaline Phosphatase 42 U/L (38-126); Anion Gap 6 mmol/L; Blood Urea Nitrogen 15 mg/dL (9-20); Calcium 8.2 mg/dL (8.4-10.2); Carbon Dioxide 30 mmol/L (22-30); Chloride 106 mmol/L (98-107); Glucose 91 mg/dL (74-99); Potassium 3.5 mmol/L (3.5-5.1); Sodium 142 mmol/L (137-145); Total Bilirubin 1.1 mg/dL (0.2-1.3); Total Protein 5.1 g/dL (6.3-8.2)
--- NOTE | 2018-03-23 16:28 | P.PN ---
Subjective Progress Note Date: 03/23/18 03/23/2018, patient seen eval reexamined during the rounds, no other specific complains of present intermittent moving all 4 extremities, urine is positive for Klebsiella, currently on Levaquin which shows sensitivity Patient is an 87-year-old male admitted for altered mental status. Patient was brought to [facility] after his noticed he was not acting his usual self. Patient has been having frequent falls at home. There is concern for possible stroke and patient was brought to the emergency room for further evaluation. Computed tomography scan of the brain was done which was normal. CT angiogram of the brain and neck were also done which showed no significant abnormalities. Patient did have urinalysis which showed signs of urinary tract infection and patient was placed on Levaquin. Patient does have history of Alzheimer's dementia and is on Aricept in the home setting. No lateralizing weakness was noted on admission. Patient did come in with elevated blood pressure improved acceptable range. Patient does have history of chronic back pain and received increased dose of hydrocodone this morning, and patient has been extremely lethargic since. At the time of my evaluation, patient is arousable but extremely lethargic. He does not appear to be in any acute distress. Objective - Vital Signs Vital signs: Vital Signs Temp 97.9 F 03/23/18 15:00 Pulse 76 03/23/18 15:00 Resp 18 03/23/18 15:00 BP 162/87 03/23/18 15:00 Pulse Ox 96 03/23/18 15:00 Intake & Output 03/22/18 03/23/18 03/23/18 18:59 06:59 18:59 Intake Total 400 120 320 Balance 400 120 320 Intake: IV 400 320 0.9 400 320 Oral 120 Other: Voiding Method Diaper Diaper Diaper Incontinent Incontinent Incontinent # Voids 2 3 - Labs CBC & Chem 7: 03/23/18 06:49 03/23/18 06:49 Labs: Abnormal Lab Results - Last 24 Hours (Table) 03/23/18 03/23/18 Range/Units 06:49 06:49 Hgb 12.5 L (13.0-17.5) gm/dL Hct 37.3 L (39.0-53.0) % Lymphocytes # 0.7 L (1.0-4.8) k/uL Creatinine 0.61 L (0.66-1.25) mg/dL Calcium 8.2 L (8.4-10.2) mg/dL Total Protein 5.1 L (6.3-8.2) g/dL Albumin 2.9 L (3.5-5.0) g/dL Assessment and Plan Assessment: Urinary tract infection related to Klebsiella Altered mental status encephalopathy related to Klebsiella Congestive heart failure acute on chronic related to diastolic heart failure Advanced dementia and Alzheimer's disease 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
[2018-03-23] MEDS: LEVOFLOXACIN 750 MG TAB PO SCH (21:52)
[2018-03-24] MEDS: hydrALAZINE HCL 20 MG/ML 1 ML VIAL IVP PRN (00:21)
[2018-03-24] MEDS: HYDROcodone/APAP 5-325MG 1 EACH TAB PO PRN (01:31)
[2018-03-24 06:52] LABS: Basophils % (A) 0 %; Eosinophils # (A) 0.2 k/uL (0-0.7); Eosinophils % (A) 3 %; HCT 41.1 % (39.0-53.0); HGB 14.2 gm/dL (13.0-17.5); Lymphocytes # (A) 0.8 k/uL (1.0-4.8); Lymphocytes % (A) 10 %; MCH 28.6 pg (25.0-35.0); MCHC 34.6 g/dL (31.0-37.0); MCV 82.7 fL (80.0-100.0); Mean Platelet Volume 6.4; Monocytes # (A) 0.5 k/uL (0-1.0); Monocytes % (A) 7 %; Neutrophils # (A) 6.1 k/uL (1.3-7.7); Neutrophils % (A) 78 %; Platelet Count 213 k/uL (150-450); Poikilocytosis Slight; RBC 4.97 m/uL (4.30-5.90); RDW 13.5 % (11.5-15.5); WBC 7.8 k/uL (3.8-10.6)
[2018-03-24 07:02] LABS: ALT 33 U/L (21-72); AST 17 U/L (17-59); Albumin 3.1 g/dL (3.5-5.0); Alkaline Phosphatase 45 U/L (38-126); Anion Gap 6 mmol/L; Blood Urea Nitrogen 11 mg/dL (9-20); Calcium 8.5 mg/dL (8.4-10.2); Carbon Dioxide 33 mmol/L (22-30); Chloride 102 mmol/L (98-107); Glucose 106 mg/dL (74-99); Potassium 3.4 mmol/L (3.5-5.1); Sodium 141 mmol/L (137-145); Total Bilirubin 1.1 mg/dL (0.2-1.3); Total Protein 5.5 g/dL (6.3-8.2)
[2018-03-24] MEDS: FAMOTIDINE 20 MG TAB PO SCH (09:39)
[2018-03-24] MEDS: EZETIMIBE 10 MG TAB PO SCH (09:39)
[2018-03-24] MEDS: POTASSIUM CHLORIDE ER 20 MEQ TAB.ER PO SCH (09:39)
[2018-03-24] MEDS: DONEPEZIL 10 MG TAB PO SCH (09:39)
[2018-03-24] MEDS: LISINOPRIL 10 MG TAB PO SCH (09:39)
[2018-03-24] MEDS: FUROSEMIDE 20 MG TAB PO SCH (09:39)
[2018-03-24] MEDS: TAMSULOSIN 0.4 MG CAP.ER.24H PO SCH (09:39)
[2018-03-24] MEDS: METOPROLOL TARTRATE 25 MG TAB PO SCH ×2 (09:39→21:47)
[2018-03-24] MEDS: ENOXAPARIN 40 MG/0.4 ML SYRINGE SQ SCH (09:39)
--- NOTE | 2018-03-24 12:46 | EEG ---
ELECTROENCEPHALOGRAM REPORT DATE OF SERVICE: 03/21/2018. REASON FOR TESTING: Stroke and altered mental status. DESCRIPTION OF THE PROCEDURE: This EEG was performed using a 21 channel digital electroencephalograph, following the international 10-20 system. DESCRIPTION OF THE RECORDING: From the beginning of the tracing, and with patient's eyes closed, the background rhythm was mostly consisting of 7 Hz theta frequency in the posterior occipital leads. No obvious asymmetry is seen. Photic stimulation was performed with no driving response seen. No pathological waves were elicited. Occasional movement and muscle artifacts are seen. Hyperventilation was not performed. The patient does reach stage II of sleep during the tracing and occasional sleep spindles are seen. No epileptiform discharges were seen. His EKG lead showed a regular rate and rhythm. INTERPRETATION: This asleep and awake EEG is abnormal due to presence of generalized slowing of the background rhythm, mostly in the theta range. This is consistent with mild encephalopathy. No epileptiform discharges were seen. The absence of epileptiform discharges does not rule out the diagnosis of epilepsy; therefore clinical correlation is recommended. MMBIANCAL / IJFrancois: [id number] /
--- NOTE | 2018-03-24 19:29 | P.PN ---
Subjective Progress Note Date: 03/24/18 Principal diagnosis: Klebsiella urinary tract infection, altered mental status encephalopathy related to urinary tract infection, congestive heart failure related to acute on chronic diastolic heart failure, advanced dementia and Alzheimer's disease, hypertension and hypertensive cardiovascular disease, 03/24/2018, patient seen eval reexamined during the rounds clinically patient has been doing well tolerating antibiotics well no obvious distress present hemodynamic status stable, vital signs are stable, labs reviewed medications reviewed, patient is on potassium replacement as well as CURTIS inhibitor's being monitor observe potassium level is slightly on the lower side 03/23/2018, patient seen eval reexamined during the rounds, no other specific complains of present intermittent moving all 4 extremities, urine is positive for Klebsiella, currently on Levaquin which shows sensitivity Patient is an 87-year-old male admitted for altered mental status. Patient was brought to [facility] after his noticed he was not acting his usual self. Patient has been having frequent falls at home. There is concern for possible stroke and patient was brought to the emergency room for further evaluation. Computed tomography scan of the brain was done which was normal. CT angiogram of the brain and neck were also done which showed no significant abnormalities. Patient did have urinalysis which showed signs of urinary tract infection and patient was placed on Levaquin. Patient does have history of Alzheimer's dementia and is on Aricept in the home setting. No lateralizing weakness was noted on admission. Patient did come in with elevated blood pressure improved acceptable range. Patient does have history of chronic back pain and received increased dose of hydrocodone this morning, and patient has been extremely lethargic since. At the time of my evaluation, patient is arousable but extremely lethargic. He does not appear to be in any acute distress. Objective - Vital Signs Vital signs: Vital Signs Temp 97.4 F L 03/24/18 16:07 Pulse 76 03/24/18 16:07 Resp 16 03/24/18 16:07 BP 147/83 03/24/18 16:07 Pulse Ox 97 03/24/18 16:07 Intake & Output 03/24/18 03/24/18 03/25/18 06:59 18:59 06:59 Intake Total 690 Balance 690 Weight 52.163 kg Intake: Oral 690 Other: Voiding Method Diaper Diaper Incontinent Incontinent # Voids 1 1 - Exam GENERAL APPEARANCE: Patient is a well-developed, male who appears to be in no acute distress. HEENT: Normocephalic, atraumatic, no facial asymmetry is seen. Neck is supple with no masses felt. CARDIOVASCULAR: Regular rate and rhythm. ABDOMEN: Nontender, nondistended. EXTREMITIES: Show no edema or clubbing. NEUROLOGICAL EXAM: Patient is awake, alert, and oriented 2. Patient states he is in the hospital and can state his name. Patient does not know what year or month it is. No lateralizing weakness noted. No obvious facial asymmetry is noted. Sensory exam to light touch is normal in all 4 extremities. No tremors or seizure-like activity noted. - Labs CBC & Chem 7: 03/24/18 06:34 03/24/18 06:34 Labs: Abnormal Lab Results - Last 24 Hours (Table) 03/24/18 03/24/18 Range/Units 06:34 06:34 Lymphocytes # 0.8 L (1.0-4.8) k/uL Potassium 3.4 L (3.5-5.1) mmol/L Carbon Dioxide 33 H (22-30) mmol/L Creatinine 0.64 L (0.66-1.25) mg/dL Glucose 106 H (74-99) mg/dL Total Protein 5.5 L (6.3-8.2) g/dL Albumin 3.1 L (3.5-5.0) g/dL Assessment and Plan Assessment: Urinary tract infection related to Klebsiella Altered mental status encephalopathy related to Klebsiella Congestive heart failure acute on chronic related to diastolic heart failure Advanced dementia and Alzheimer's disease 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
[2018-03-24] MEDS: LEVOFLOXACIN 750 MG TAB PO SCH (21:47)
[2018-03-25] MEDS: EZETIMIBE 10 MG TAB PO SCH (09:07)
[2018-03-25] MEDS: TAMSULOSIN 0.4 MG CAP.ER.24H PO SCH (09:07)
[2018-03-25] MEDS: POTASSIUM CHLORIDE ER 20 MEQ TAB.ER PO SCH (09:07)
[2018-03-25] MEDS: ENOXAPARIN 40 MG/0.4 ML SYRINGE SQ SCH (09:07)
[2018-03-25] MEDS: LISINOPRIL 10 MG TAB PO SCH (09:07)
[2018-03-25] MEDS: METOPROLOL TARTRATE 25 MG TAB PO SCH ×2 (09:07→20:53)
[2018-03-25] MEDS: FAMOTIDINE 20 MG TAB PO SCH (09:07)
[2018-03-25] MEDS: FUROSEMIDE 20 MG TAB PO SCH (09:07)
[2018-03-25] MEDS: DONEPEZIL 10 MG TAB PO SCH (09:07)
[2018-03-25 10:01] LABS: Basophils % (A) 0 %; Eosinophils # (A) 0.1 k/uL (0-0.7); Eosinophils % (A) 1 %; HCT 40.9 % (39.0-53.0); HGB 13.4 gm/dL (13.0-17.5); Lymphocytes # (A) 0.8 k/uL (1.0-4.8); Lymphocytes % (A) 9 %; MCHC 32.9 g/dL (31.0-37.0); MCV 82.3 fL (80.0-100.0); Mean Platelet Volume 6.8; Monocytes # (A) 0.4 k/uL (0-1.0); Monocytes % (A) 5 %; Neutrophils # (A) 6.9 k/uL (1.3-7.7); Neutrophils % (A) 83 %; Platelet Count 250 k/uL (150-450); RBC 4.97 m/uL (4.30-5.90); RDW 13.4 % (11.5-15.5); WBC 8.3 k/uL (3.8-10.6)
[2018-03-25 10:56] LABS: ALT 47 U/L (21-72); AST 29 U/L (17-59); Albumin 3.2 g/dL (3.5-5.0); Alkaline Phosphatase 47 U/L (38-126); Anion Gap 6 mmol/L; Blood Urea Nitrogen 18 mg/dL (9-20); Calcium 8.9 mg/dL (8.4-10.2); Carbon Dioxide 30 mmol/L (22-30); Chloride 106 mmol/L (98-107); Glucose 119 mg/dL (74-99); Potassium 3.5 mmol/L (3.5-5.1); Sodium 142 mmol/L (137-145); Total Protein 5.6 g/dL (6.3-8.2)
--- NOTE | 2018-03-25 15:27 | P.PN ---
Subjective Progress Note Date: 03/25/18 Klebsiella urinary tract infection, altered mental status encephalopathy related to urinary tract infection, congestive heart failure related to acute on chronic diastolic heart failure, advanced dementia and Alzheimer's disease, hypertension and hypertensive cardiovascular disease, Patient is an 87-year-old male admitted for altered mental status. Patient was brought to [facility] after his noticed he was not acting his usual self. Patient has been having frequent falls at home. There is concern for possible stroke and patient was brought to the emergency room for further evaluation. Computed tomography scan of the brain was done which was normal. CT angiogram of the brain and neck were also done which showed no significant abnormalities. Patient did have urinalysis which showed signs of urinary tract infection and patient was placed on Levaquin. Patient does have history of Alzheimer's dementia and is on Aricept in the home setting. No lateralizing weakness was noted on admission. Patient did come in with elevated blood pressure improved acceptable range. Patient does have history of chronic back pain and received increased dose of hydrocodone this morning, and patient has been extremely lethargic since. At the time of my evaluation, patient is arousable but extremely lethargic. He does not appear to be in any acute distress. 03/23/2018, patient seen eval reexamined during the rounds, no other specific complains of present intermittent moving all 4 extremities, urine is positive for Klebsiella, currently on Levaquin which shows sensitivity 03/24/2018, patient seen eval reexamined during the rounds clinically patient has been doing well tolerating antibiotics well no obvious distress present hemodynamic status stable, vital signs are stable, labs reviewed medications reviewed, patient is on potassium replacement as well as CURTIS inhibitor's being monitor observe potassium level is slightly on the lower side On 03/25/2018 patient is currently resting comfortably in bed. Patient remains on by mouth Levaquin for Klebsiella in his urine. Anticipate possible discharge home tomorrow. Patient will be discharged to [facility]. Objective - Vital Signs Vital signs: Vital Signs Temp 98.1 F 03/25/18 07:00 Pulse 78 03/25/18 09:39 Resp 16 03/25/18 09:39 BP 143/84 03/25/18 07:00 Pulse Ox 95 03/25/18 07:00 Intake & Output 08/06/18 08/07/18 08/07/18 18:59 06:59 18:59 Weight 52.163 kg Other: Voiding Method Diaper Diaper Diaper Incontinent Incontinent Incontinent # Voids 1 4 - Exam Head normocephalic Neck supple Lungs clear to auscultation bilaterally no wheezing or crackles Heart regular rate and rhythm S1-S2, no rub or gallop Abdomen is soft nontender nondistended positive bowel sounds no hepatosplenomegaly Extremities no edema Neuro alert and orientated to 2. No lateralizing weakness noted. No obvious facial asymmetry is noted. No tremors or seizure-like activity noted. - Labs CBC & Chem 7: 03/25/18 09:13 03/25/18 09:13 Labs: Abnormal Lab Results - Last 24 Hours (Table) 03/25/18 03/25/18 Range/Units 09:13 09:13 Lymphocytes # 0.8 L (1.0-4.8) k/uL Creatinine 0.60 L (0.66-1.25) mg/dL Glucose 119 H (74-99) mg/dL Total Protein 5.6 L (6.3-8.2) g/dL Albumin 3.2 L (3.5-5.0) g/dL Assessment and Plan Assessment: 1. Urinary tract infection related to Klebsiella. On Levaquin by mouth antibiotic. Plan for discharge with by mouth Levaquin 500 for 10 days 2. Altered mental status encephalopathy related to Klebsiella. 3. Congestive heart failure acute on chronic related to diastolic heart failure. Continue Lasix 4. Advanced dementia and Alzheimer's disease 5. hypertensive cardiovascular disease 6. History of prior CVA 7. Hypertension 8. Protein calorie malnourishment DVT prophylaxis Lovenox GI prophylaxis Pepcid I performed an examination of the patient and discussed their management with the Nurse Practitioner. I have reviewed the Nurse Practitioner's notes and agree with the documented findings and plan of care possible discharge to [facility] tomorrow
[2018-03-25] MEDS: LEVOFLOXACIN 750 MG TAB PO SCH (20:53)
[2018-03-26] MEDS: FUROSEMIDE 20 MG TAB PO SCH (09:23)
[2018-03-26] MEDS: ENOXAPARIN 40 MG/0.4 ML SYRINGE SQ SCH (09:23)
[2018-03-26] MEDS: METOPROLOL TARTRATE 25 MG TAB PO SCH ×2 (09:23→20:45)
[2018-03-26] MEDS: EZETIMIBE 10 MG TAB PO SCH (09:23)
[2018-03-26] MEDS: TAMSULOSIN 0.4 MG CAP.ER.24H PO SCH (09:23)
[2018-03-26] MEDS: FAMOTIDINE 20 MG TAB PO SCH (09:23)
[2018-03-26] MEDS: DONEPEZIL 10 MG TAB PO SCH (09:24)
[2018-03-26] MEDS: POTASSIUM CHLORIDE ER 20 MEQ TAB.ER PO SCH (09:24)
[2018-03-26] MEDS: LISINOPRIL 10 MG TAB PO SCH (09:24)
[2018-03-26 09:36] LABS: Basophils % (A) 0 %; Eosinophils # (A) 0.1 k/uL (0-0.7); Eosinophils % (A) 1 %; HCT 40.4 % (39.0-53.0); HGB 13.7 gm/dL (13.0-17.5); Lymphocytes # (A) 0.9 k/uL (1.0-4.8); Lymphocytes % (A) 10 %; MCH 28.1 pg (25.0-35.0); MCHC 33.9 g/dL (31.0-37.0); MCV 82.9 fL (80.0-100.0); Mean Platelet Volume 6.3; Monocytes # (A) 0.5 k/uL (0-1.0); Monocytes % (A) 5 %; Neutrophils # (A) 7.1 k/uL (1.3-7.7); Neutrophils % (A) 82 %; Platelet Count 254 k/uL (150-450); Poikilocytosis Slight; RBC 4.87 m/uL (4.30-5.90); RDW 13.7 % (11.5-15.5); WBC 8.6 k/uL (3.8-10.6)
[2018-03-26 10:04] LABS: ALT 45 U/L (21-72); AST 26 U/L (17-59); Albumin 3.2 g/dL (3.5-5.0); Alkaline Phosphatase 47 U/L (38-126); Anion Gap 7 mmol/L; Blood Urea Nitrogen 16 mg/dL (9-20); Calcium 8.8 mg/dL (8.4-10.2); Carbon Dioxide 29 mmol/L (22-30); Chloride 106 mmol/L (98-107); Glucose 122 mg/dL (74-99); Magnesium 2.2 mg/dL (1.6-2.3); Potassium 3.4 mmol/L (3.5-5.1); Sodium 142 mmol/L (137-145); Total Bilirubin 0.8 mg/dL (0.2-1.3); Total Protein 5.6 g/dL (6.3-8.2)
[2018-03-26] MEDS ORDERED: POTASSIUM CHLORIDE ER 20 MEQ TAB.ER PO STA (11:03)
--- NOTE | 2018-03-26 11:06 | P.PN ---
Subjective Progress Note Date: 03/26/18 Klebsiella urinary tract infection, altered mental status encephalopathy related to urinary tract infection, congestive heart failure related to acute on chronic diastolic heart failure, advanced dementia and Alzheimer's disease, hypertension and hypertensive cardiovascular disease, Patient is an 87-year-old male admitted for altered mental status. Patient was brought to [facility] after his noticed he was not acting his usual self. Patient has been having frequent falls at home. There is concern for possible stroke and patient was brought to the emergency room for further evaluation. Computed tomography scan of the brain was done which was normal. CT angiogram of the brain and neck were also done which showed no significant abnormalities. Patient did have urinalysis which showed signs of urinary tract infection and patient was placed on Levaquin. Patient does have history of Alzheimer's dementia and is on Aricept in the home setting. No lateralizing weakness was noted on admission. Patient did come in with elevated blood pressure improved acceptable range. Patient does have history of chronic back pain and received increased dose of hydrocodone this morning, and patient has been extremely lethargic since. At the time of my evaluation, patient is arousable but extremely lethargic. He does not appear to be in any acute distress. 03/23/2018, patient seen eval reexamined during the rounds, no other specific complains of present intermittent moving all 4 extremities, urine is positive for Klebsiella, currently on Levaquin which shows sensitivity 03/24/2018, patient seen eval reexamined during the rounds clinically patient has been doing well tolerating antibiotics well no obvious distress present hemodynamic status stable, vital signs are stable, labs reviewed medications reviewed, patient is on potassium replacement as well as CURTIS inhibitor's being monitor observe potassium level is slightly on the lower side On 03/25/2018 patient is currently resting comfortably in bed. Patient remains on by mouth Levaquin for Klebsiella in his urine. Anticipate possible discharge home tomorrow. Patient will be discharged to [facility]. On 03/26/2018 patient is currently resting comfortably in bed without any complaints. Awaiting on daughter to arrive from out of state to complete admission paperwork for [facility]. Anticipate discharge hopefully tomorrow to [facility] rehab. Denies chest pain or shortness of breath. Anticipate discharge with home dose of Levaquin 500 for 10 days Objective - Vital Signs Vital signs: Vital Signs Temp 97.0 F L 03/26/18 05:00 Pulse 71 03/26/18 05:00 Resp 16 03/26/18 05:00 BP 188/99 03/26/18 05:00 Pulse Ox 97 03/26/18 05:00 Intake & Output 03/25/18 03/26/18 03/26/18 18:59 06:59 18:59 Intake Total 590 Balance 590 Intake: Oral 590 Other: Voiding Method Diaper Diaper Diaper Incontinent Incontinent Incontinent # Voids 3 2 # Bowel Movements 1 - Exam Head normocephalic Neck supple Lungs clear to auscultation bilaterally no wheezing or crackles Heart regular rate and rhythm S1-S2, no rub or gallop Abdomen is soft nontender nondistended positive bowel sounds no hepatosplenomegaly Extremities no edema Neuro alert and orientated to 2. No lateralizing weakness noted. No obvious facial asymmetry is noted. No tremors or seizure-like activity noted. - Labs CBC & Chem 7: 03/26/18 09:11 03/26/18 09:11 Labs: Abnormal Lab Results - Last 24 Hours (Table) 03/26/18 03/26/18 Range/Units 09:11 09:11 Lymphocytes # 0.9 L (1.0-4.8) k/uL Potassium 3.4 L (3.5-5.1) mmol/L Creatinine 0.61 L (0.66-1.25) mg/dL Glucose 122 H (74-99) mg/dL Total Protein 5.6 L (6.3-8.2) g/dL Albumin 3.2 L (3.5-5.0) g/dL Assessment and Plan Assessment: 1. Urinary tract infection related to Klebsiella. On Levaquin by mouth antibiotic. Plan for discharge with by mouth Levaquin 500 for 10 days 2. Altered mental status encephalopathy related to Klebsiella. 3. Congestive heart failure acute on chronic related to diastolic heart failure. Continue Lasix 4. Advanced dementia and Alzheimer's disease 5. hypertensive cardiovascular disease 6. History of prior CVA 7. Hypertension 8. Protein calorie malnourishment. DVT prophylaxis Lovenox GI prophylaxis Pepcid I performed an examination of the patient and discussed their management with the Nurse Practitioner. I have reviewed the Nurse Practitioner's notes and agree with the documented findings and plan of care possible discharge to [facility] tomorrow
[2018-03-26] MEDS: LEVOFLOXACIN 750 MG TAB PO SCH (20:45)
[2018-03-26 22:54] VITALS: RESP 16; TEMP 97
[2018-03-27 07:39] LABS: Basophils % (A) 0 %; Eosinophils # (A) 0.1 k/uL (0-0.7); Eosinophils % (A) 1 %; HCT 41.4 % (39.0-53.0); HGB 13.2 gm/dL (13.0-17.5); Lymphocytes % (A) 10 %; MCH 27.1 pg (25.0-35.0); MCHC 31.8 g/dL (31.0-37.0); Mean Platelet Volume 6.1; Monocytes # (A) 0.5 k/uL (0-1.0); Monocytes % (A) 5 %; Neutrophils # (A) 8.1 k/uL (1.3-7.7); Neutrophils % (A) 83 %; Platelet Count 273 k/uL (150-450); Poikilocytosis Slight; RBC 4.87 m/uL (4.30-5.90); RDW 13.7 % (11.5-15.5); WBC 9.9 k/uL (3.8-10.6)
[2018-03-27 08:04] LABS: ALT 43 U/L (21-72); AST 22 U/L (17-59); Albumin 3.3 g/dL (3.5-5.0); Alkaline Phosphatase 54 U/L (38-126); Anion Gap 6 mmol/L; Blood Urea Nitrogen 15 mg/dL (9-20); Calcium 8.8 mg/dL (8.4-10.2); Carbon Dioxide 32 mmol/L (22-30); Chloride 105 mmol/L (98-107); Glucose 95 mg/dL (74-99); Potassium 3.8 mmol/L (3.5-5.1); Sodium 143 mmol/L (137-145); Total Bilirubin 0.6 mg/dL (0.2-1.3); Total Protein 5.7 g/dL (6.3-8.2)
[2018-03-27] MEDS: FAMOTIDINE 20 MG TAB PO SCH (10:18)
[2018-03-27] MEDS: FUROSEMIDE 20 MG TAB PO SCH (10:18)
[2018-03-27] MEDS: DONEPEZIL 10 MG TAB PO SCH (10:19)
[2018-03-27] MEDS: METOPROLOL TARTRATE 25 MG TAB PO SCH (10:19)
[2018-03-27] MEDS: POTASSIUM CHLORIDE ER 20 MEQ TAB.ER PO SCH (10:19)
[2018-03-27] MEDS: ENOXAPARIN 40 MG/0.4 ML SYRINGE SQ SCH (10:19)
[2018-03-27] MEDS: EZETIMIBE 10 MG TAB PO SCH (10:19)
[2018-03-27] MEDS: LISINOPRIL 10 MG TAB PO SCH (10:19)
[2018-03-27] MEDS: TAMSULOSIN 0.4 MG CAP.ER.24H PO SCH (10:19)
[2018-03-27 11:37] VITALS: BP 166/79; PULSE 63
--- NOTE | 2018-03-27 13:10 | FL ---
EXAMINATION TYPE: FL barium swallow w video DATE OF EXAM: 03/27/2018 MODIFIED SWALLOW / DEGLUTITION STUDY CLINICAL HISTORY: Dysphagia. TECHNIQUE: Deglutition study is performed utilizing thin liquid barium, honey and nectar thick liqui d barium, barium thick applesauce, and barium coated cracker. 1 oz each thin, honey, nectar, and pud ding thick bariums, 2 min fluoro. 0 images saved as this was video recorded. COMPARISON: None. FINDINGS: The oral and pharyngeal phases show satisfactory initiation and propagation with all modali ties tested. Normal mastication is seen with solid modalities tested. There is no evidence of aspir ation with any modality tested. Laryngeal penetration is seen with thin barium consistency only. Una lecular, piriform and posterior pharyngeal wall retention is appreciated with applesauce/pudding thic k barium. IMPRESSION: Vallecular, piriform sinus, and posterior pharyngeal wall retention with thicker consiste ncies and laryngeal penetration with the thin barium consistency only. Please refer to speech therap ist notes for further details if necessary.
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
== END 2018-03-27 16:00 | DRG 689 ==
LOC: EC 17:26 → 5MS5E 18:51 → OBSVTOIN 03-20 16:26
PROVIDERS: ADMIT Internal Medicine; ATTEND Internal Medicine
DX: N39.0 Urinary tract infection, site not specified (principal); E43 Unspecified severe protein-calorie malnutrition; G93.41 Metabolic encephalopathy; I50.33 Acute on chronic diastolic (congestive) heart failure; Z68.1 Body mass index [BMI] 19.9 or less, adult; R17 Unspecified jaundice; B96.1 Klebsiella pneumoniae [K. pneumoniae] as the cause of diseases classified elsewhere; E78.5 Hyperlipidemia, unspecified; E86.0 Dehydration; F02.80 Dementia in other diseases classified elsewhere, unspecified severity, without behavioral disturbance, psychotic disturbance, mood disturbance, and anxiety; G30.9 Alzheimer's disease, unspecified; I08.1 Rheumatic disorders of both mitral and tricuspid valves; I11.0 Hypertensive heart disease with heart failure; I44.0 Atrioventricular block, first degree; M54.5 Low back pain; N40.0 Benign prostatic hyperplasia without lower urinary tract symptoms; R13.10 Dysphagia, unspecified; R29.6 Repeated falls; W19.XXXA Unspecified fall, initial encounter; Z79.899 Other long term (current) drug therapy; Z86.73 Personal history of transient ischemic attack (TIA), and cerebral infarction without residual deficits; Z87.891 Personal history of nicotine dependence; Z90.49 Acquired absence of other specified parts of digestive tract; Z88.1 Allergy status to other antibiotic agents; Z88.8 Allergy status to other drugs, medicaments and biological substances
CPT/HCPCS: 36415; 70450; 70496; 70498; 72110; 72220; 74022; 74230; 80048; 80053; 81001; 82550; 82553; 83735; 84484; 85025; 85610; 85730; 87077; 87086; 87186; 93005; 93306; 94760; 95819; 96361; 96365; 96375; 99285